=== PATIENT | male | born 1965 | race Caucasian/White ===

== ENCOUNTER 2017-10-04 11:27 | Inpatient (IN) | payer MEDICARE ==
[~2017-10-04] VITALS: Ht 175.3 cm; Wt 80.3 kg
[~2017-10-04 11:27] MED LIST: DICYCLOMINE HCL20 MG PO; FUROSEMIDE20 MG PO; GENERLAC10 GM/15 M PO; HYDROCORTI100 MG/60 RC; HYDROMORPHONE HC8 MG PO; IPRATROPIU0.2 MG/1 M INH; LINZESS PO; LOVAZA1 GM PO; NASONEX17 GM; NOVOLOG100 UNIT/4 SQ; ORPHENADRINE PO; SEE LIST ON CHART; Z SEROQUEL PO; Z.0.ADVAIR 250-501 E IH; Z.0.AMITRIPTYLINE H5 PO; Z.0.CARISOPRODOL350 PO; Z.0.COMBIVENT INH14. IH; Z.0.CRESTOR10 MG PO; Z.0.LANTUS 3ML100 UN SQ; Z.0.LASIX80 MG PO; Z.0.LISINOPRIL2.5 MG PO; Z.0.OXYCODONE HCL30 PO; Z.0.PROMETHAZINE HC2 PO; Z.0.SPIRONOLACTONE50 PO; Z.0.TAMSULOSIN HCL0. PO; Z.0.XANAX1 MG PO; ZOFRAN8 MG PO; [UNRECOGNIZED DRUG - OTHER] PO
[2017-10-04] MEDS ORDERED: ASPIRIN 81 MG CHEW TAB PO ONE (12:00)
[2017-10-04 12:08] LABS: BASOPHILS % 0.5 % (0.0-1.0); EOSINOPHILS # (AUTO) 0.1 (0.0-0.4); EOSINOPHILS % 0.9 % (0.0-6.0); HEMOGLOBIN 13.8 g/dL (14.0-18.0); LYMPHOCYTES # (AUTO) 2.4 (1.0-3.2); LYMPHOCYTES % 29.9 % (18.0-39.1); MEAN CORPUSCULAR HEMOGLOBIN 31.3 pg (28-32); MEAN CORPUSCULAR HGB CONC 35.4 g/dL (31-35); MEAN CORPUSCULAR VOLUME 88.4 fL (81-99); MONOCYTES # (AUTO) 0.5 (0.2-0.8); NEUTROPHILS % 61.8 % (38.7-80.0); PLATELET COUNT 112 x10e3/uL (140-360); RED BLOOD COUNT 4.41 x10e6/uL (4.3-5.7); RED CELL DISTRIBUTION WIDTH 12.7 % (11.7-14.4)
[2017-10-04 12:22] LABS: INR 1.08; PROTHROMBIN TIME 13.2 seconds (11.9-14.5)
[2017-10-04 12:24] LABS: PARTIAL THROMBOPLASTIN TIME 75.3 seconds (23.8-35.5)
--- NOTE | 2017-10-04 12:27 | Diagnostic Imaging Report ---
History: Syncope Comparison studies: CT head 08/10/2010 Technique: Axial images were obtained from the skull base to the vertex. Coronal and sagittal reconstructions obtained from the axial data. Findings: Scalp/skull: No abnormalities. No fractures, blastic or lytic lesions. Extra-axial spaces: No masses. No fluid collections. Brain sulci: Appropriate for age. Ventricles: Normal in size and configuration. No hydrocephalus. Parenchyma: No abnormal densities. No masses, hemorrhage, acute or chronic cortical vascular insults. Sellar/suprasellar region: No abnormalities Craniocervical junction: Patent foramen magnum. No Chiari one malformation. IMPRESSION: No abnormalities . Signed by: DR Juan Ramon Nino M.D. on 10/04/2017 12:23 PM
[2017-10-04 12:30] LABS: ALANINE AMINOTRANSFERASE 72 IU/L (0-55); ALBUMIN 3.4 g/dL (3.5-5.0); ALBUMIN/GLOBULIN RATIO 1.2 (0.8-2.0); ALKALINE PHOSPHATASE 128 IU/L (40-150); ANION GAP 11.4 mmol/L (8-16); BLOOD UREA NITROGEN 6 mg/dL (7-26); BUN/CREATININE RATIO 9 (6-25); CALCIUM 8.8 mg/dL (8.4-10.2); CARBON DIOXIDE 30 mmol/L (22-29); CHLORIDE 99 mmol/L (98-107); CREATINE KINASE 51 IU/L (30-200); EST GLOMERULAR FILTRATION RATE > 60 ML/MIN (60-); GLUCOSE 203 mg/dL (74-118); POTASSIUM 3.4 mmol/L (3.5-5.1); SODIUM 137 mmol/L (136-145)
--- NOTE | 2017-10-04 12:45 | Diagnostic Imaging Report ---
PROCEDURE: A single AP view of the chest. COMPARISON: Patients [facility], CT, CT CHEST W, 01/27/2012, 16:06. INDICATIONS: CHEST PAIN FINDINGS: Lines/tubes: Left upper chest Port-A-Cath is unchanged.. Lungs: The lungs are well inflated and clear. There is no evidence of pneumonia or pulmonary edema. Pleura: There is no pleural effusion or pneumothorax. Heart and mediastinum: The heart and the mediastinum are unremarkable. Bones: No acute bony abnormality. IMPRESSION: 1. No acute cardiopulmonary abnormalities. Pasquale Walker M.D. Dictated by: Pasquale Walker M.D. on 10/04/2017 at 12:46 Electronically approved by: Pasquale Walker M.D. on 10/04/2017 at 12:46
[2017-10-04] MEDS ORDERED: NITROGLYCERIN 0.4 MG SUBL SL PRN ×2 (13:15→15:15)
[2017-10-04] MEDS ORDERED: ASPIRIN 325 MG TAB PO ONE (13:15)
[2017-10-04] MEDS ORDERED: NITROGLYCERIN 2% OINT 1 GM PKT TOP ONE (13:15)
[2017-10-04] MEDS ORDERED: METOPROLOL TARTRATE 25 MG TAB PO ONE (13:30)
[2017-10-04] MEDS ORDERED: LEVEMIR100 UNIT/1 SC (13:47)
[2017-10-04] MEDS ORDERED: CYMBALTA20 MG PO (13:47)
[2017-10-04] MEDS ORDERED: LISINOPRIL2.5 MG PO (13:47)
[2017-10-04] MEDS ORDERED: OXYCODONE HCL20 M1 PO (13:47)
[2017-10-04 14:17] LABS: AMPHETAMINES SCREEN,URINE NEGATIVE (NEGATIVE); BENZODIAZEPINES SCREEN,URINE NEGATIVE (NEGATIVE); PHENCYCLIDINE SCREEN,URINE NEGATIVE (NEGATIVE)
[2017-10-04 14:18] LABS: BILIRUBIN,URINE NEGATIVE (NEGATIVE); CLARITY,URINE CLEAR (CLEAR); COLOR,URINE YELLOW (YELLOW); KETONES,URINE NEGATIVE (NEGATIVE); LEUKOCYTE ESTERASE ,URINE NEGATIVE (NEGATIVE); NITRITE,URINE NEGATIVE (NEGATIVE); PROTEIN,URINE DIPSTICK NEGATIVE (NEGATIVE); URINE UROBILINOGEN 0.2 mg/dL (0.2 - 1)
[2017-10-04 14:34] LABS: BACTERIA,URINE FEW /HPF; EPITHELIAL CELLS,URINE FEW /LPF; RBC,URINE 0-5 /HPF (0-5); WBC,URINE (MAN) 0-5 /HPF (0-5)
[2017-10-04] MEDS ORDERED: DEXTROSE 50% SYRINGE 50 ML IV PRN ×2 (15:15→16:15)
[2017-10-04] MEDS: METOPROLOL TARTRATE 25 MG TAB PO SCH (15:32)
--- OUTSIDE RECORDS SUMMARY | 2017-10-04 15:33 | XMS REPORT ---
Author Author [facility] Address Unknown Phone Unavailable Care Team Providers Care Permit Coordinator Name Role Phone LAURA VICENTE Unavailable Unavailable Problems This patient has no known problems. Allergies, Adverse Reactions, Alerts This patient has no known allergies or adverse reactions. Medications This patient has no known medications. Encounters Start Date/Time End Date/Time Encounter Type Admission Type Attending Clinicians Care Facility Care Department Encounter ID 2016-11-16 00:00:00 2016-11-16 00:00:[address] [facility] [id number] Results Test Description Test Time Test Comments Text Results Atomic Results Result Comments CT BRAIN WO [place] [address] Patient Name: CLARK EDWARDS MR #: [id number] : 1965 Age/Sex: 52/M Req #: [id number] Adm Physician: Ordered by: VICENTE SANCHEZ MD Report #: [id number] Location: ER Room/Bed: Procedure: [id number] CT/CT BRAIN WO Exam Date: 10/04/17 Exam Time: 1200 REPORT STATUS: Signed History: Syncope Comparison studies: CT head Technique: Axial images were obtained from the skull base to the vertex. Coronal and sagittal reconstructions obtained from the axial data. Findings: Scalp/skull: No abnormalities. No fractures, blastic or lytic lesions. Extra-axial spaces: No masses. No fluid collections. Brain sulci: Appropriate for age. Ventricles: Normal in size and configuration. No hydrocephalus. Parenchyma: No abnormal densities. No masses, hemorrhage, acute or chronic cortical vascular insults. Sellar/suprasellar region: No abnormalities Craniocervical junction: Patent foramen magnum. No Chiari one malformation. IMPRESSION: No abnormalities . Signed by: DR Juan Ramon Nino M.D. on 2017 12:23 PM Dictated By: JUAN RAMON POLLOCK MD 1223 Transcribed By: HAJA on 10/04/17 1223 COPY TO: VICENTE SANCHEZ MD CHEST SINGLE (PORTABLE) [place] [address] Patient Name: CLARK EDWARDS MR #: [id number] : 1965 Age/Sex: 52/M Req #: [id number] Adm Physician: Ordered by: VICENTE SANCHEZ MD Report #: [id number] Location: ER Room/Bed: Procedure: [id number] DX/CHEST SINGLE (PORTABLE) Exam Date: 10/04/17 Exam Time: 1200 REPORT STATUS: Signed PROCEDURE: A single AP view of the chest. COMPARISON: [facility], CT, CT CHEST W, 01/27/2012, 16:06. INDICATIONS: CHEST PAIN FINDINGS: Lines/tubes: Left upper chest Port-A-Cath is unchanged.. Lungs: The lungs are well inflated and clear. There is no evidence of pneumonia or pulmonary edema. Pleura: There is no pleural effusion or pneumothorax. Heart and mediastinum: The heart and the mediastinum are unremarkable. Bones: No acute bony abnormality. IMPRESSION: 1. No acute cardiopulmonary abnormalities. Jessica Walker M.D. Dictated by : Jessica Walker M.D. on 10/04/2017 at 12:46 Electronically approved by: Jessica Walker M.D. on 10/04/2017 at 12:46 Dictated By : JESSICA WALKER MD 1246 Transcribed By: PAVEL on 10/04/17 1246 COPY TO: VICENTE SANCHEZ MD
[2017-10-04] MEDS: FAMOTIDINE 20 MG TAB PO SCH (16:00)
[2017-10-04] MEDS ORDERED: ALPRAZOLAM 1 MG TAB PO PRN (16:15)
[2017-10-04] MEDS ORDERED: NON-FORMULARY MEDICATION (Insulin Detemir (Levemir) 20 UNITS) SC SCH (16:15)
[2017-10-04] MEDS ORDERED: OXYCODONE HCL 20 MG TAB CR PO PRN (16:15)
[2017-10-04] MEDS: INSULIN LISPRO 100 UNIT/1 ML 3ML VIAL SQ SCH ×3 (16:30→20:30)
--- NOTE | 2017-10-04 16:42 | History and Physical ---
CHIEF COMPLAINT: Chest discomfort and syncope. HISTORY OF PRESENT ILLNESS: The patient is a 52-year-old man. He has a history of hepatitis and early cirrhosis as well as 2 prior episodes of acute pancreatitis. 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 The size of the lymph glands has been unchanged on CT scans. He came to the emergency department complaining of some discomfort in his chest. He also noted his blood pressure was high, and he passed out. He recovered consciousness very quickly. He is not having chest pain any longer. He is not having shortness of breath. He did note some nausea. PAST SURGICAL HISTORY 1. Status post lymph node biopsy of the mediastinum. 2. Status post liver biopsy in 2003. SOCIAL HISTORY: The patient is no longer drinking. He is not smoking at this time. FAMILY HISTORY: Family history is noncontributory. REVIEW OF SYSTEMS: The patient is afebrile. The patient does not have any headache or neck pain. He did have some chest pain as noted above. He is not having any difficulty breathing. He has no abdominal pain. He did have some nausea. He has no leg edema. PHYSICAL EXAMINATION VITAL SIGNS: The patient is afebrile. The vital signs are stable. HEENT: Examination shows no facial swelling or erythema. The nasal mucosa is normal. The oropharynx is normal. LYMPHATIC: Examination shows no submandibular, cervical or supraclavicular adenopathy. CARDIAC: Exam reveals a regular rate and rhythm with a normal S1 and S2. There are no murmurs or rubs. LUNGS: Auscultation reveals clear breath sounds bilaterally. There is no wheezing. ABDOMEN: Soft and nontender. There is no rebound or guarding. EXTREMITIES: Examination shows no leg edema or calf tenderness. There is no cyanosis or clubbing. SKIN: Examination shows no rashes. NEUROLOGICAL: Exam shows no focal abnormalities. IMPRESSION 1. Atypical chest pain. 2. Syncope. 3. 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 4. Prior history of pancreatitis. PLAN 1. The patient will be observed overnight. 2. Patient will have serial enzymes and telemetry monitoring. 3. Cardiology evaluation. 4. Amylase and lipase. 5. Blood pressure control. Job#: [id number] EV
[2017-10-04] MEDS ORDERED: OXYCODONE HCL IR 5 MG TAB PO PRN (16:45)
[2017-10-04 16:55] VITALS: BP 136/82
[2017-10-04] MEDS ORDERED: INSULIN ASPART 30 UNIT SQ SCH (17:00)
[2017-10-04] MEDS ORDERED: INSULIN DETEMIR 100 UNIT/ML PEN SQ SCH (17:00)
[2017-10-04 17:06] VITALS: BP 136/82
[2017-10-04] MEDS: NITROGLYCERIN 2% OINT 1 GM PKT TOP SCH (18:33)
[2017-10-04] MEDS: INSULIN DETEMIR 100 UNIT/ML PEN SQ SCH (18:33)
[2017-10-04] MEDS: ALPRAZOLAM 0.5 MG TAB PO PRN (18:33)
[2017-10-04] MEDS: MORPHINE SULFATE 2 MG/ML SYR IV PRN (18:33)
[2017-10-04 20:00] VITALS: BP 109/66
[2017-10-04 20:30] VITALS: BP 109/66
[2017-10-04] MEDS: HYDROMORPHONE 1MG/1ML INJ IV PRN (20:30)
[2017-10-04] MEDS: ONDANSETRON HCL INJ 2 MG/ML VIAL IV PRN (20:30)
[2017-10-04 20:58] LABS: CREATINE KINASE 49 IU/L (30-200)
[2017-10-05] VITALS (7 sets, daily range): BP systolic 106–154; BP diastolic 55–88
[2017-10-05] MEDS: NITROGLYCERIN 2% OINT 1 GM PKT TOP SCH ×4 (00:30→17:19)
[2017-10-05] MEDS: ONDANSETRON HCL INJ 2 MG/ML VIAL IV PRN (01:30)
[2017-10-05] MEDS: HYDROMORPHONE 1MG/1ML INJ IV PRN ×2 (01:30→04:30)
[2017-10-05] MEDS: METOPROLOL TARTRATE 25 MG TAB PO SCH ×2 (04:16→17:17)
[2017-10-05] MEDS: FAMOTIDINE 20 MG TAB PO SCH ×2 (04:17→17:18)
[2017-10-05] MEDS: ALPRAZOLAM 0.5 MG TAB PO PRN ×3 (04:17→21:48)
[2017-10-05 04:22] LABS: BASOPHILS % 0.5 % (0.0-1.0); EOSINOPHILS # (AUTO) 0.1 (0.0-0.4); EOSINOPHILS % 1.2 % (0.0-6.0); HEMATOCRIT 36.1 % (38.2-49.6); HEMOGLOBIN 12.6 g/dL (14.0-18.0); LYMPHOCYTES # (AUTO) 2.2 (1.0-3.2); LYMPHOCYTES % 28.2 % (18.0-39.1); MEAN CORPUSCULAR HGB CONC 34.9 g/dL (31-35); MEAN CORPUSCULAR VOLUME 88.9 fL (81-99); MONOCYTES # (AUTO) 0.5 (0.2-0.8); MONOCYTES % 5.8 % (4.4-11.3); NEUTROPHILS # (AUTO) 4.9 (2.1-6.9); NEUTROPHILS % 63.8 % (38.7-80.0); PLATELET COUNT 104 x10e3/uL (140-360); RED BLOOD COUNT 4.06 x10e6/uL (4.3-5.7); RED CELL DISTRIBUTION WIDTH 12.9 % (11.7-14.4)
[2017-10-05 04:29] LABS: INR 1.06
[2017-10-05 04:30] LABS: PARTIAL THROMBOPLASTIN TIME 31.5 seconds (23.8-35.5)
[2017-10-05 04:40] LABS: ALANINE AMINOTRANSFERASE 61 IU/L (0-55); ALBUMIN 3.1 g/dL (3.5-5.0); ALBUMIN/GLOBULIN RATIO 1.2 (0.8-2.0); ALKALINE PHOSPHATASE 119 IU/L (40-150); AMYLASE 41 U/L (25-125); ANION GAP 9.9 mmol/L (8-16); BLOOD UREA NITROGEN 9 mg/dL (7-26); BUN/CREATININE RATIO 15 (6-25); CALCIUM 8.5 mg/dL (8.4-10.2); CARBON DIOXIDE 31 mmol/L (22-29); CHLORIDE 101 mmol/L (98-107); CHOL/HDL RATIO 3.1 (3.9-4.7); CHOLESTEROL 182 MD/DL (0-199); CREATININE, SERUM 0.61 mg/dL (0.72-1.25); EST GLOMERULAR FILTRATION RATE > 60 ML/MIN (60-); GLUCOSE 109 mg/dL (74-118); HDL CHOLESTEROL 58 MG/DL (40-60); LDL CHOLESTEROL 107 MG/DL (60-130); POTASSIUM 3.9 mmol/L (3.5-5.1); SODIUM 138 mmol/L (136-145); TRIGLYCERIDES 85 MG/DL (0-149)
[2017-10-05 04:42] LABS: CREATINE KINASE 46 IU/L (30-200)
[2017-10-05 04:43] LABS: LIPASE < 4 U/L (8-78)
[2017-10-05] MEDS: INSULIN DETEMIR 100 UNIT/ML PEN SQ SCH ×2 (05:30→17:19)
[2017-10-05] MEDS: INSULIN LISPRO 100 UNIT/1 ML 3ML VIAL SQ SCH ×7 (07:30→21:42)
[2017-10-05] MEDS ORDERED: REGADENOSON 0.4 MG/5 ML SYR IV ONE (08:47)
--- NOTE | 2017-10-05 09:16 | Consultation ---
DATE OF CONSULTATION: October 04, 2017 CARDIOLOGY CONSULTATION REASON FOR CONSULTATION: Severe chest pain. CONSULTING PHYSICIAN: Dr. Murray HPI: This is a pleasant 52-year-old male that presented with severe chest pain. He described left substernal chest pressure on a scale of 10/10 that has been going on for the last 3-4 days. He also complained of episode of syncope that he decided to come into the emergency room for evaluation. He denies any dizziness, any diaphoresis, any shortness of breath, or headache. Troponin was negative. EKG with no S/T abnormalities. He has a history of hepatitis, liver cirrhosis and swollen lymph node. PAST MEDICAL HISTORY: Chronic back pain, hepatitis, liver cirrhosis, swollen lymph node, diabetes, and pancreatitis. PAST SURGICAL HISTORY: Multiple back surgeries, cholecystectomy, lymph node biopsy, and liver biopsy. FAMILY HISTORY: Noncontributory. SOCIAL HISTORY: He quit smoking and drinking and lives at home with the family. MEDICATIONS: See med list. ALLERGIES: HE IS ALLERGIC TO PENICILLIN. REVIEW OF SYSTEMS: Negative except those mentioned above. PHYSICAL EXAMINATION VITAL SIGNS: Temperature 97, heart rate 73, blood pressure 130/81, respirations 20, oxygen saturation 97% on room air. GENERAL: He is awake, alert and oriented times 3. HEENT: Mucous membrane moist. NECK: Supple. LUNGS: Bilateral clear to auscultation. CARDIOVASCULAR: S1 and S2 present. ABDOMEN: Soft. NEUROLOGICAL: Intact. EXTREMITIES: With no edema. LABS: Sodium 138, potassium 3.9, chloride 101, CO2 31, BUN 9, creatinine 0.61, glucose 109. White blood cells 7.74, hemoglobin 12.6, hematocrit 36.1, and platelets 104,000. PT 13.1, PTT 31.5 and INR 1.06. IMPRESSION 1. Chest pain. 2. Diabetes. 3. Syncope. 4. History of chronic back pain. ASSESSMENT AND PLAN: Will go ahead and schedule him for Lexiscan Myoview due to the severe chest pain. Will get bilateral carotid Doppler. Get an echocardiogram. Continue nitrates and beta amri. Further cardiac workup pending clinical course. Thank you for this consultation. DICTATED BY WAYLON STEVENSON NP Job#: [id number] ME
[2017-10-05] MEDS: LISINOPRIL 2.5 MG TAB PO SCH (10:50)
[2017-10-05] MEDS: DULOXETINE HCL 20 MG DELAYED RELEASE PO SCH (10:50)
[2017-10-05] MEDS: ASPIRIN 81 MG ENTERIC COATED PO SCH (10:50)
[2017-10-05] MEDS: MORPHINE SULFATE 2 MG/ML SYR IV PRN ×3 (10:50→21:42)
[2017-10-05] MEDS ORDERED: METOPROLOL TARTRATE INJ 1 MG/ML VIAL IV PRN (11:30)
--- NOTE | 2017-10-05 18:16 | Consultation ---
DATE OF CONSULTATION: October 05, 2017 NEUROLOGY CONSULTATION TIME: 5 p.m. REASON FOR CONSULTATION: Syncope. This is a 52-year-old male who apparently in the last 2-3 days has been feeling weak. Has been having trouble ambulating with feeling of the legs, and then started developing chest pain. Because of continuation of the problem, he was brought to the emergency room where he had an accelerated blood pressure over 180/110 according to the patient. He denies any headaches. No dizziness. No visual disturbance. No speech and no swallowing difficulties. He denies any focal paresthesia or any focal weakness. He has some paresthesia of the fingers of both hands and a little bit of both feet. He denies any speech or any swallowing difficulty. The patient has blacked out before. He was hospitalized here I think in 2010 or 2011. PAST HISTORY: He has a history of multiple low back pain, multiple surgeries in the lower back. He has a history of cholecystectomy, liver biopsy. Apparently, has a history of hepatitis, liver cirrhosis. FAMILY HISTORY: Noncontributory. SOCIAL HISTORY: He quit smoking and drinking, and lives at home with his family. LIST OF MEDICATIONS: Has been reviewed electronically. ALLERGIES: PENICILLIN. PHYSICAL EXAMINATION VITAL SIGNS: Blood pressure 115/55, pulse 75, temperature 97.5. LUNGS: Clear to auscultation. HEART: Regular sinus rhythm. No murmur. ABDOMEN: No tenderness. MUSCULOSKELETAL: Lower extremities with no edema. No cyanosis. No clubbing. NEURO: He is alert. He is oriented times 3. Speech clear. No dysarthria or dysphagia. Cranial nerves: Pupils are both equal and reactive. Extraocular movements were full. Visual field was normal. No facial weakness. Tongue protrudes in the midline. Motor power: The patient is able to lift arms without any difficulty. Abduction of the arm is 5/5. Flexion and extension of the arms is 5/5. Dorsiflexion in both wrists are 5/5. Finger extension is 5/5 bilaterally. Hand rv servicer 5/5. Lower extremities: The patient is able to elevate the legs against gravity at approximately 40-45 degrees. No more than that because of back pain. There is no weakness on flexion of the hips, 5/5 flexion and extension of the knees of 5/5, dorsiflexion of the ankles 5/5, and plantar flexion 5/5. Deep tendon reflexes of the triceps, biceps and radialis 1+. Knee jerk and ankle jerk is absent bilaterally. Coordination: Ajagzv-[id number]-vbgl is normal. HEENT: Head is normocephalic. NECK: Supple. Carotid pulsations were present bilaterally with no bruits. LABORATORY WORKUP: CBC shows a white count of 7700 with a hemoglobin of 12.6, hematocrit 36.1 and platelets 104,000. Chemistry: Sodium 138, potassium 3.9, BUN 9, creatinine 0.61. Estimated GFR greater than 60. Glucose 109. Liver enzymes: AST 38, ALT 61. Toxicology positive for cannabinoids and positive for opiates. Urinalysis is negative. CT scan of the brain with no acute pathology and relatively normal. Carotid Doppler: I have reviewed and findings shows there is no evidence of flow impairment. Echocardiogram report pending. Electrocardiogram is sinus tachycardia. The patient at the present time is feeling better. He is not ambulating yet. I think physical therapy will help him walk tomorrow. IMPRESSION 1. Syncopal spell, unspecified. 2. Rule out cardiac arrhythmia. 3. Rule out possible hypotension. 4. Hypertension, first time. 5. Diabetes mellitus, type 2, insulin-dependent. I have reviewed all the workup. Images so far is negative. We still need the report of the echocardiogram. Will be discussing with the barbecue cook. I do not think we are dealing with any pathology for the syncope nor expect any seizures. Job#: [id number] ELIZABETH
[2017-10-05] MEDS: ONDANSETRON HCL 4 MG ORAL DISINTEGRATING TAB PO PRN (21:42)
[2017-10-06] VITALS (7 sets, daily range): BP systolic 113–140; BP diastolic 64–72
[2017-10-06] MEDS: NITROGLYCERIN 2% OINT 1 GM PKT TOP SCH ×3 (00:18→12:20)
[2017-10-06] MEDS: ONDANSETRON HCL 4 MG ORAL DISINTEGRATING TAB PO PRN (02:02)
[2017-10-06] MEDS: MORPHINE SULFATE 2 MG/ML SYR IV PRN ×5 (02:02→20:10)
[2017-10-06] MEDS: METOPROLOL TARTRATE 25 MG TAB PO SCH ×2 (04:06→15:28)
[2017-10-06] MEDS: FAMOTIDINE 20 MG TAB PO SCH ×2 (04:08→15:28)
[2017-10-06] MEDS: ALPRAZOLAM 0.5 MG TAB PO PRN ×2 (04:09→21:14)
[2017-10-06] MEDS: INSULIN DETEMIR 100 UNIT/ML PEN SQ SCH ×2 (05:16→22:00)
[2017-10-06] MEDS ORDERED: OXYCODONE HCL IR 5 MG TAB PO PRN (07:15)
[2017-10-06] MEDS: INSULIN LISPRO 100 UNIT/1 ML 3ML VIAL SQ SCH ×7 (07:30→21:20)
[2017-10-06] MEDS: LISINOPRIL 2.5 MG TAB PO SCH (08:26)
[2017-10-06] MEDS: ASPIRIN 81 MG ENTERIC COATED PO SCH (08:26)
[2017-10-06] MEDS: DULOXETINE HCL 20 MG DELAYED RELEASE PO SCH (08:26)
--- NOTE | 2017-10-06 18:02 | Cardiology Report ---
DATE OF STUDY: October 05, 2017 LEXISCAN NUCLEAR STRESS TEST INDICATION: Chest pain. DESCRIPTION OF PROCEDURE: After informed consent, patient was brought to the stress lab. Using 11 mCi of technetium 99 Myoview intravenous stain, and myocardial perfusion SPECT images were obtained in horizontal long axis and short axis and vertical long axis. Subsequently the patient was given 0.4 mg Lexiscan over 10 seconds. Patient was given 33 mCi of technetium 99 Myoview, and myocardial perfusion SPECT images obtained in horizontal long and short axis vertical long axis views. Gating images were also obtained. Patient tolerated the procedure without any complications. REPORT: Baseline EKG shows sinus rhythm at 70 beats per minute, normal axis, normal intervals, no acute ST-T changes. PARAMETERS 1. Resting heart rate is 67 beats per minute. 2. Maximal heart rate is 101 beats per minute. 3. Resting blood pressure is 127/83 mmHg. 4. Maximum blood pressure 128/90 mmHg. REASON FOR TERMINATION: Endpoint attained. INTERPRETATION 1. Negative chest pain. 2. Negative for arrhythmias. 3. Blood pressure response consistent with Lexiscan. 4. No significant ST-T changes seen during Lexiscan infusion compared to baseline. 5. Analysis SPECT images reveals uniform radioisotope uptake in all segments of the myocardium without any significant perfusion defects. CONCLUSION 1. No evidence of significant ischemia or infarction on this study. 2. Diffuse hypokinesis left ventricle is noted. 3. Overall ejection fraction is 23%. Please add a postscript op note: patient's ejection fraction on echo was normal. Job#: [id number] PAMELA
[2017-10-07] VITALS (7 sets, daily range): BP systolic 104–128; BP diastolic 68–73
[2017-10-07] MEDS: MORPHINE SULFATE 2 MG/ML SYR IV PRN ×5 (00:02→12:08)
[2017-10-07] MEDS: METOPROLOL TARTRATE 25 MG TAB PO SCH ×2 (03:40→15:15)
[2017-10-07] MEDS: FAMOTIDINE 20 MG TAB PO SCH ×2 (03:58→15:15)
[2017-10-07] MEDS: INSULIN LISPRO 100 UNIT/1 ML 3ML VIAL SQ SCH ×4 (07:30→11:53)
[2017-10-07] MEDS: LISINOPRIL 2.5 MG TAB PO SCH (09:00)
[2017-10-07] MEDS: DULOXETINE HCL 20 MG DELAYED RELEASE PO SCH (09:00)
[2017-10-07] MEDS: INSULIN DETEMIR 100 UNIT/ML PEN SQ SCH (09:00)
[2017-10-07] MEDS: ASPIRIN 81 MG ENTERIC COATED PO SCH (09:00)
== END 2017-10-07 15:58 | disposition home or self-care (01) | DRG 313 ==
LOC: ER 11:37 → ERHOLD 15:30 → MED/SURG 16:15 → OBSVTOIN 10-05 11:26
PROVIDERS: ADMIT Internal Medicine Critical Care Medicine; ATTEND Internal Medicine Critical Care Medicine
DX: R07.89 Other chest pain (principal); E11.65 Type 2 diabetes mellitus with hyperglycemia; R55 Syncope and collapse; R59.0 Localized enlarged lymph nodes; Z88.0 Allergy status to penicillin; Z79.4 Long term (current) use of insulin; G89.29 Other chronic pain; Z87.891 Personal history of nicotine dependence
CPT/HCPCS: 36415; 70450; 71045; 78452; 80053; 80061; 80307; 81001; 82150; 82550; 82553; 82948; 83690; 83880; 84484; 85025; 85610; 85730; 93005; 93017; 93306; 93880; 99285; A9502; G0378; J1170; J1642; J2270; J2405